=== PATIENT | female | born 1955 | race Caucasian/White ===

== ENCOUNTER 2022-05-08 09:53 | Emergency (ER) | payer OTHER ==
[2022-05-08 10:10] VITALS: RESP 18; TEMP 98; BMI 29.2
[2022-05-08 11:21] LABS: EPI CELLS 27 /uL (0-25.1); HYALINE CASTS 1 /uL (0-3.1); URINE APPEARANCE CLOUDY; URINE BACTERIA 1378 /uL (0-1359); URINE BILIRUBIN NEGATIVE (NEGATIVE); URINE COLOR YELLOW; URINE GLUCOSE (UA) NEGATIVE (NEGATIVE); URINE KETONE TRACE (NEGATIVE); URINE LEUK ESTERASE NEGATIVE (NEGATIVE); URINE NITRITE NEGATIVE (NEGATIVE); URINE PROTEIN TRACE (NEGATIVE); URINE UROBILINOGEN 0.2 mg/dL (0.2-1.0); URINE WBC 15 /uL (0-25.8)
[2022-05-08] MEDS ORDERED: ACETAMINOPHEN 1000 MG/100 ML BAG IVPB ONE (12:19)
[2022-05-08] MEDS ORDERED: SODIUM CHLORIDE 0.9% 500 ML INFUS.BAG IV ONE (12:19)
[2022-05-08 12:28] LABS: PH,URINE 5.5 (5.0-8.0); URINE APPEARANCE CLEAR; URINE BILIRUBIN NEGATIVE (NEGATIVE); URINE COLOR YELLOW; URINE GLUCOSE (UA) NEGATIVE (NEGATIVE); URINE KETONE TRACE (NEGATIVE); URINE LEUK ESTERASE NEGATIVE (NEGATIVE); URINE NITRITE NEGATIVE (NEGATIVE); URINE PROTEIN NEGATIVE (NEGATIVE); URINE UROBILINOGEN 0.2 mg/dL (0.2-1.0)
[2022-05-08] MEDS ORDERED: ACETAMINOPHEN INJECTION 100 ML IVPB ONE (12:39)
[2022-05-08 12:51] LABS: YEAST NEGATIVE (NEGATIVE)
[2022-05-08 13:09] LABS: BASO % 0.3 % (0-2.0); EOS % 0.3 % (0-4.5); HEMATOCRIT 34.4 % (32.4-45.2); LYMPH % 8.6 % (8-40); MCH 31.5 pg (25.7-33.7); MCHC 34.9 g/dl (32.0-36.0); MEAN CELL VOLUME 90.2 fl (80-96); MEAN PLT VOLUME 6.9 fl (7.5-11.1); MONO % 5.9 % (3.8-10.2); NEUT % 84.9 % (42.8-82.8); PLATELET COUNT 296 10^3/uL (134-434); RBC 3.81 M/mm3 (3.60-5.2); WHITE BLOOD COUNT 9.7 K/mm3 (4.0-10.0)
[2022-05-08 13:29] LABS: CALCIUM 9.2 mg/dL (8.5-10.1)
[2022-05-08 13:30] LABS: ALBUMIN 3.9 g/dl (3.4-5.0); BLOOD UREA NITROGEN 29.4 mg/dL (7-18)
[2022-05-08 13:33] LABS: CREATININE 1.2 mg/dL (0.55-1.3)
[2022-05-08 13:34] LABS: BILIRUBIN,TOTAL 0.8 mg/dL (0.2-1)
[2022-05-08] MEDS ORDERED: SULFAMETHOXAZOLE/TRIMETHOPRIM 800MG/160MG D.S. TABLET PO ONE (18:14)
[2022-05-08] MEDS ORDERED: SULFAMETHOXAZOLE/TRIMETHOPRIM 800MG/160MG D.S. TABLET ONE (18:18)
[2022-05-08 18:20] VITALS: BP 146/67; PULSE 68
== END 2022-05-08 18:29 | disposition home or self-care (01) ==
LOC: JER 09:53
PROC: 3E0333Z Introduction of Anti-inflammatory into Peripheral Vein, Percutaneous Approach (ICD-10-PCS; principal; 2022-05-08)
DX: R10.30 Lower abdominal pain, unspecified (principal)
CPT/HCPCS: 36415; 74177-TC; 80053; 81003; 83605; 83690; 85025; 87086; 99285-25

== ENCOUNTER 2022-07-11 12:37 | Emergency (ER) | payer OTHER ==
[2022-07-11 12:41] VITALS: BP 157/49; PULSE 65; RESP 18; TEMP 97.8; BMI 28.9
[2022-07-11 14:18] LABS: EPI CELLS 8 /uL (0-25.1); HYALINE CASTS 0 /uL (0-3.1); PH,URINE 7.5 (5.0-8.0); URINE APPEARANCE CLEAR; URINE BACTERIA 123 /uL (0-1359); URINE BILIRUBIN NEGATIVE (NEGATIVE); URINE COLOR YELLOW; URINE GLUCOSE (UA) NEGATIVE (NEGATIVE); URINE KETONE NEGATIVE (NEGATIVE); URINE LEUK ESTERASE TRACE (NEGATIVE); URINE NITRITE NEGATIVE (NEGATIVE); URINE PROTEIN NEGATIVE (NEGATIVE); URINE RBC 56 /uL (0-23.9); URINE UROBILINOGEN 0.2 mg/dL (0.2-1.0); URINE WBC 7 /uL (0-25.8)
[2022-07-11 15:00] LABS: HEMATOCRIT 36.2 % (32.4-45.2); HEMOGLOBIN 12.3 GM/dL (10.7-15.3); MCH 31.3 pg (25.7-33.7); MEAN CELL VOLUME 91.9 fl (80-96); MEAN PLT VOLUME 6.7 fl (7.5-11.1); PLATELET COUNT 315 10^3/uL (134-434); RBC 3.94 M/mm3 (3.60-5.2); RDW 12.9 % (11.6-15.6); WHITE BLOOD COUNT 9.8 K/mm3 (4.0-10.0)
[2022-07-11 15:04] LABS: INR 1.07 (0.83-1.09); PROTHROMBIN TIME (PATIENT) 12.3 SEC (9.7-13.0)
[2022-07-11 15:21] LABS: CALCIUM 9.6 mg/dL (8.5-10.1)
[2022-07-11 15:22] LABS: ALBUMIN 3.9 g/dl (3.4-5.0); BLOOD UREA NITROGEN 31.6 mg/dL (7-18)
[2022-07-11 15:25] LABS: CREATININE 1.1 mg/dL (0.55-1.3)
[2022-07-11 15:27] LABS: BILIRUBIN,TOTAL 0.5 mg/dL (0.2-1)
[2022-07-11] MEDS ORDERED: SODIUM CHLORIDE 0.9% 500 ML INFUS.BAG IV ONE (15:45)
[2022-07-11 17:00] LABS: ANISOCYTOSIS 1+; MACROCYTOSIS 0
[2022-07-11] MEDS ORDERED: SODIUM PHOSPHATE/NA BIPHOS 133 ML ENEMA PR ONE (17:28)
== END 2022-07-11 18:31 | disposition home or self-care (01) ==
LOC: JER 12:37
DX: K59.00 Constipation, unspecified (principal)
CPT/HCPCS: 36415; 74177-TC; 80053; 81003; 85025; 85610; 86850; 86900; 86901; 87086; 99284-25; Q9967

== ENCOUNTER 2023-02-04 12:25 | Emergency (ER) | payer OTHER ==
[2023-02-04 12:32] VITALS: BP 158/58; PULSE 63; RESP 18; TEMP 98.1; BMI 23.1
[2023-02-04 13:32] LABS: PH,URINE 7.5 (5.0-8.0); URINE APPEARANCE CLEAR; URINE BILIRUBIN NEGATIVE (NEGATIVE); URINE COLOR YELLOW; URINE GLUCOSE (UA) NEGATIVE (NEGATIVE); URINE KETONE NEGATIVE (NEGATIVE); URINE LEUK ESTERASE NEGATIVE (NEGATIVE); URINE NITRITE NEGATIVE (NEGATIVE); URINE PROTEIN NEGATIVE (NEGATIVE); URINE UROBILINOGEN 0.2 mg/dL (0.2-1.0)
== END 2023-02-04 15:37 | disposition home or self-care (01) ==
LOC: JER 12:25
DX: N32.81 Overactive bladder (principal); R21 Rash and other nonspecific skin eruption; R10.2 Pelvic and perineal pain; K62.89 Other specified diseases of anus and rectum
CPT/HCPCS: 81003; 87086; 99283-25

== ENCOUNTER 2023-02-06 11:24 | Emergency (ER) | payer OTHER ==
[2023-02-06 11:35] VITALS: RESP 18; BMI 23.1
[2023-02-06 13:24] LABS: EPI CELLS 23 /uL (0-25.1); HYALINE CASTS 0 /uL (0-3.1); URINE APPEARANCE CLEAR; URINE BACTERIA 166 /uL (0-1359); URINE BILIRUBIN NEGATIVE (NEGATIVE); URINE COLOR YELLOW; URINE GLUCOSE (UA) NEGATIVE (NEGATIVE); URINE KETONE NEGATIVE (NEGATIVE); URINE LEUK ESTERASE 1+ (NEGATIVE); URINE NITRITE NEGATIVE (NEGATIVE); URINE PROTEIN NEGATIVE (NEGATIVE); URINE RBC 37 /uL (0-23.9); URINE UROBILINOGEN 0.2 mg/dL (0.2-1.0); URINE WBC 43 /uL (0-25.8)
[2023-02-06 13:37] LABS: URINE CRYSTALS NO SEEN /hpf
[2023-02-06] MEDS ORDERED: POLYETHYLENE GLYCOL (HEALTHYLAX) 3350 17 GM PACKET PO ONE (14:00)
[2023-02-06] MEDS ORDERED: POLYETHYLENE GLYCOL (HEALTHYLAX) 3350 17 GM PACKET ONE (14:03)
[2023-02-06] MEDS ORDERED: SENNOSIDES 8.6MG TABLET (FP) PO ONE ×2 (14:03→14:13)
[2023-02-06] MEDS ORDERED: SENNOSIDES 8.6MG TABLET (FP) PO SCH ×2 (14:10→22:00)
[2023-02-06 15:57] VITALS: BP 148/60; PULSE 89; TEMP 97.9
== END 2023-02-06 15:58 | disposition home or self-care (01) ==
LOC: JER 11:24
DX: R19.7 Diarrhea, unspecified (principal); K59.00 Constipation, unspecified
CPT/HCPCS: 81003; 87086; 87186; 99283-25